=== PATIENT | male | born 2005 | race Caucasian/White ===

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

== ENCOUNTER 2023-02-09 01:51 | Emergency (ER) | payer OTHER ==
[~2023-02-09] VITALS: Ht 177.8 cm; Wt 100.0 kg
[~2023-02-09 01:51] MED LIST: DIPH25CA85 PO; IBUP-1492 PO
[2023-02-09 01:52] VITALS: BP 137/82; PULSE 91; RESP 17; TEMP 98.8
[2023-02-09 02:35] LABS: COVID AG,FIA SOURCE NASAL SWAB
[2023-02-09 03:00] LABS: INFLUENZA TYPE A NEGATIVE FOR TYPE A (NEGATIVE); INFLUENZA TYPE B NEGATIVE FOR TYPE B (NEGATIVE); SARS-COV2 (COVID) ANTIGEN,FIA Negative (Negative)
[2023-02-09] MEDS ORDERED: AZIT250T9 PO ×2 (03:39→04:11)
[2023-02-09] MEDS ORDERED: IBUPROFEN 800 MG TABLET PO ONE (03:45)
== END 2023-02-09 06:13 | disposition home or self-care (01) ==
LOC: EMS 01:52
DX: H66.93 Otitis media, unspecified, bilateral (principal); Z20.822 Contact with and (suspected) exposure to COVID-19
CPT/HCPCS: 71045; 87804; 99284